=== PATIENT | female | born 1940 | race Hispanic/Latino ===

== ENCOUNTER → 2018-02-02 | Day surgery (SDC) | payer MEDICARE ==
[2018-02-01 16:29] LABS: BASOPHILS # (AUTO) 0.1 (0.0-0.1); BASOPHILS % 0.7 % (0.0-1.0); EOSINOPHILS # (AUTO) 0.2 (0.0-0.4); EOSINOPHILS % 2.1 % (0.0-6.0); HEMATOCRIT 37.9 % (34.2-44.1); HEMOGLOBIN 12.8 g/dL (12.0-16.0); LYMPHOCYTES # (AUTO) 2.4 (1.0-3.2); LYMPHOCYTES % 29.5 % (18.0-39.1); MEAN CORPUSCULAR HEMOGLOBIN 31.8 pg (28-32); MEAN CORPUSCULAR HGB CONC 33.8 g/dL (31-35); MEAN CORPUSCULAR VOLUME 94.3 fL (81-99); MONOCYTES # (AUTO) 0.7 (0.2-0.8); MONOCYTES % 8.4 % (4.4-11.3); NEUTROPHILS # (AUTO) 4.9 (2.1-6.9); NEUTROPHILS % 59.1 % (38.7-80.0); PLATELET COUNT 196 x10e3/uL (140-360); RED BLOOD COUNT 4.02 x10e6/uL (3.6-5.1); RED CELL DISTRIBUTION WIDTH 12.9 % (11.7-14.4)
[~2018-02-02] MED LIST: LEVOTHYROXINE PO; PROPOFOL IV EMULSION 10 MG/ML 50 ML VIAL ONE
--- OUTSIDE RECORDS SUMMARY | 2018-02-02 08:31 | XMS REPORT | Summary of Care ---
Author Author [facility] Organization [facility] Address Unknown Phone Unavailable Encounter HQ Lelar_hilary(FIN) [id number] Date(s): 09/26/17 - 09/26/[address] [facility] [address] [place] [address]- [phone] Discharge Disposition: Home or Self Care Attending Physician: Physician, Non Associated MD Vital Signs No data available for this section Problem List Condition Effective Dates Status Health Status Informant Headache(Confirmed) Active Simple Active obesity(Confirmed) Trigeminal Active neuralgia(Confirmed) Allergies, Adverse Reactions, Alerts Substance Reaction Severity Status NKDA Active Medications No data available for this section Results No data available for this section Immunizations No data available for this section Procedures Procedure Date Related Diagnosis Body Site Status Foot joint operations1 Completed Social History Social History Type Response Substance Abuse Use: None. Alcohol Never Smoking Status Former smoker; Exposure to Tobacco Smoke None; Cigarette Smoking Last 365 Days No; Reg Smoking Cessation Counseling No1 entered on: 07/19/17 1as a teenager Assessment and Plan No data available for this section
--- OUTSIDE RECORDS SUMMARY | 2018-02-02 08:31 | XMS REPORT | Summary of Care ---
Author Author [facility] Organization [facility] Address Unknown Phone Unavailable Encounter JULIAN Rodriguez(FIN) [id number] Date(s): 06/06/17 - 06/06/17 [facility] [address] [place] [address] [phone] Discharge Disposition: Home or Self Care Attending Physician: Juan Pacheco MD Vital Signs Most recent to 1 oldest [Reference Range]: Height 151.13 cm (06/03/17 12:03 PM) Blood Pressure 157/82 mmHg [90-140/60-90 mmHg] *HI* (06/03/17 12:03 PM) Peripheral Pulse 66 bpm Rate [60-100 bpm] (06/03/17 12:03 PM) Weight 71.023 kg (06/03/17 12:03 PM) Body Mass Index 31.1 m2 (06/03/17 12:03 PM) Problem List Condition Effective Dates Status Health Status Informant Headache(Confirmed) Active Simple Active obesity(Confirmed) Trigeminal Active neuralgia(Confirmed) Allergies, Adverse Reactions, Alerts Substance Reaction Severity Status NKDA Active Medications indomethacin 25 mg oral capsule 25 mg=1 cap, PO, Q8H, PRN Pain, # 30 cap, 0 Refill(s), Pharmacy: [facility] [id number] Start Date: 06/06/17 Stop Date: 06/16/17 Status: Ordered levothyroxine 88 mcg (0.088 mg) oral tablet 88 microgram=1 tab, PO, Daily, 0 Refill(s) Start Date: 06/03/17 Status: Ordered Results No data available for this section [...]
--- OUTSIDE RECORDS SUMMARY | 2018-02-02 08:31 | XMS REPORT | Summary of Care ---
Author Author [facility] Organization [facility] Address Unknown Phone Unavailable Encounter HQ Encntr_alias(FIN) [id number] Date(s): 07/06/16 - 07/06/16 [facility] [address] [place] [address]- [phone] Discharge Disposition: Home or Self Care Attending Physician: Lefty Hemphill MD Referring Physician: Physician, Non Associated MD Vital Signs No data available for this section Problem List No data available for this section Allergies, Adverse Reactions, Alerts Substance Reaction Severity Status NKDA Active Medications No data available for this section Results No data available for this section Immunizations No data available for this section Procedures No data available for this section Social History No data available for this section Assessment and Plan No data available for this section
--- OUTSIDE RECORDS SUMMARY | 2018-02-02 08:31 | XMS REPORT | Summary of Care ---
Author Author [facility] Neurology [facility] Organization [facility] Neurology [facility] Address Unknown Phone Unavailable Encounter HQ Lelar_hilary(FIN) [id number] Date(s): 07/19/17 - 07/19/17 [facility] [address] [place] [phone] Discharge Disposition: Home or Self Care Attending Physician: Shine Ruiz MD Vital Signs Most recent to 1 oldest [Reference Range]: Blood Pressure 138/75 mmHg [90-140/60-90 mmHg] (07/19/17 8:06 AM) Peripheral Pulse 62 bpm Rate [60-100 bpm] (07/19/17 8:06 AM) Weight 70.114 kg (07/19/17 8:06 AM) Problem List Condition Effective Dates Status Health Status Informant Headache(Confirmed) Active Simple Active obesity(Confirmed) Trigeminal Active neuralgia(Confirmed) Allergies, Adverse Reactions, Alerts Substance Reaction Severity Status NKDA Active Medications Tegretol XR 100 mg oral tablet, extended release 100 mg=1 tab, PO, BID, # 90 tab, 1 Refill(s), Pharmacy: [facility] [id number] Start Date: 07/19/17 Status: Ordered Results No data available for this section Immunizations No data available for this section Procedures Procedure Date Related Diagnosis Body Site Status Foot joint operations1 Completed Social History Social History Type Response Substance Abuse Use: None. Alcohol Never Smoking Status Former smoker; Exposure to Tobacco Smoke None; Cigarette Smoking Last 365 Days No; Reg Smoking Cessation Counseling No1 entered on: 10/05/17 1as a teenager Assessment and Plan No data available for this section
--- OUTSIDE RECORDS SUMMARY | 2018-02-02 08:31 | XMS REPORT | Summary of Care ---
Author Organization Unknown Address Unknown Phone Unavailable Encounter HQ Lelar_hilary(ODALYS) [id number] Date(s): 02/07/14 - 02/07/14 [facility] Outpatient Imaging [address] Discharge Disposition: Home Physician Attending: Lawrence Ortez MD Reason for Visit V76.12 - SCREEN MAMMOGRA Problem List No data available for this section Allergies, Adverse Reactions, Alerts Substance Reaction Severity Status NKDA Active Medications No data available for this section Medications Administered During Your Visit No data available for this section Immunizations No data available for this section
--- OUTSIDE RECORDS SUMMARY | 2018-02-02 08:31 | XMS REPORT | Summary of Care ---
Author Author [facility] Organization [facility] Address Unknown Phone Unavailable Encounter HQ Encntr_alitay(FIN) [id number] Date(s): 07/18/17 - 07/19/17 [facility] Neurology [facility] [address] [place] [phone] Vital Signs No data available for this [...]
--- OUTSIDE RECORDS SUMMARY | 2018-02-02 08:31 | XMS REPORT | Continuity of Care Document ---
Author Author [facility] Address Unknown Phone Unavailable Problems Problem Status Onset Date Classification Date Reported Comments Source N64.4 Active 09/20/2017 [facility] Headache 07/08/2017 10/06/2017 [facility] ROUTINE SCREENING LAST MMG W///DR Active 06/01/2016 [facility] Z12.31 - ENCNTR SCREEN MAMMOGRAM FOR MA Active 04/30/2016 [facility] [place] ROUTINE Active 05/20/2015 [facility] Headache Active Problem 10/25/[address] [facility] [place],[facility] Simple obesity Active Problem 10/25/[address] [facility] [place],[facility] Trigeminal neuralgia Active Problem 10/25/[address] [facility] [place],[facility] ENCNTR SCREEN MAMMOGRAM FOR MALIGNANT NE Active [facility] Medications Medication Details Route Status Patient Instructions Ordering Provider Order Date Source 12 HR Carbamazepine 100 MG Extended Release Tablet [Tegretol] 100 mg=1 tab, PO, BID, # 90 tab, 1 Refill(s), Pharmacy: [facility] [id number] Active 07/19/[address] [facility] indomethacin 25 mg oral capsule 25 mg=1 cap, PO, Q8H, PRN Pain, # 30 cap, 0 Refill(s), Pharmacy: [facility] [id number] Active 06/06/[address] [facility] levothyroxine 88 mcg (0.088 mg) oral tablet 88 microgram=1 tab, PO, Daily, 0 Refill(s) Active 06/03/[address] [facility] Allergies, Adverse Reactions, Alerts Substance Category Reaction Severity Reaction type Status Date Reported Comments Source Immunizations Immunization Date Given Site Status Last Updated Comments Source Results Order Name Results Value Reference Range Date Interpretation Comments Source Breast Mammo Diag NAZARIO incl CAD MA Breast Mammo Diag NAZARIO incl CAD MA BILATERAL DIGITAL DIAGNOSTIC MAMMOGRAM WITH CAD: 09/26/2017 CLINICAL: Left pain. Current study was evaluated with a Computer Aided Detection (CAD) system. COMPARISON:Comparison is made to exams dated: 07/06/2016 mammogram, 05/28/2015 mammogram - [facility], 02/07/2014 mammogram - [facility], 02/02/2013 mammogram, 12/17/2011 mammogram, and 11/25/2010 mammogram - [facility]. TECHNIQUE: Mammographic views were obtained using digital acquisition. BMEYEa Version 1.3 was utilized for computer aided detection. FINDINGS: There are scattered fibroglandular densities in both breasts. There is a benign nodule in the right breast. There also are benign vascular calcifications and calcifications in both breasts. No significant masses, calcifications, or other findings are seen in either breast. There has been no significant interval change. IMPRESSION: INCOMPLETE: NEEDS ADDITIONAL IMAGING EVALUATION RECOMMENDATION:There is no mammographic abnormality seen in the left breast to correspond with the pain in the lateral aspect, however, ultrasound is recommended. The results were reviewed with the patient. This exam was interpreted at [id number] for [facility]. SUMMARY: Ultrasound will be performed at this time; please see dedicated separate report. Varghese slaughter/penrad:09/26/2017 10:26:56 Catering Attendant(s): Daxa Burroughs [facility] Mammogram BI-RADS: 0 Indeterminate 09/26/2017 - - Read by: Varghese Garcia MD Dictated Date/time: 09/26/17 10:26 Electronically Signed by: Varghese Garcia MD 09/26/17 10:26 FINAL REPORT [facility] Breast [facility] Uni US Breast Complete Uni US COMPLETE ULTRASOUND OF LEFT BREAST AND AXILLA: 09/26/2017 CLINICAL: /Breast Pain. COMPARISON:Comparison is made to exams dated: 09/26/2017 mammogram, 07/06/2016 mammogram, 05/28/2015 mammogram - [facility], 02/07/2014 mammogram - [facility] Imaging [facility], 02/02/2013 mammogram, and 05/11/2012 ultrasound - [facility]. TECHNIQUE: Color flow and real-time ultrasound of the left breast four quadrants and axilla regions were performed. Blakely scale images of the real-time examination were reviewed. All 4 quadrants, the retroareolar region and axilla are evaluated in this exam. FINDINGS: No abnormalities were seen sonographically in the left breast or the left axilla. IMPRESSION: NEGATIVE There is no sonographic evidence of malignancy. There is no mammographic or sonographic abnormality seen in the left breast to correspond with the pain at 5 o'clock. A 1 year screening mammogram is recommended.(09/27/2018) The results were reviewed with the patient. This exam was interpreted at [id number] for [facility]. Varghese Garcia M.D. jt/:09/26/2017 10:43:36 Catering Attendant(s): Renetta Ward, [facility] letter sent: BI-RADS 1/2 Ultrasound BI-RADS: 1 Negative 09/26/2017 - - Read by: Varghese Garcia MD Dictated Date/time: 09/26/17 10:43 Electronically Signed by: Varghese Garcia MD 09/26/17 10:43 FINAL REPORT [facility] Brain wo contrast MRI Brain wo contrast MRI Exam: MRI of the brain without contrast Reason for Exam: R51 Headache - R51 Headache Comparison Exam: None Technique: Multiplanar and multisequence imaging was performed of the brain. The T1 and T2-weighted images were acquired without injection of intravenous contrast. Discussion: On diffusion weighted images, there is no evidence seen for diffusion restriction. There are no abnormal fluid collections, space-occupying lesions, midline shift, or hydrocephalus noted. No cortical-based abnormalities identified. The posterior fossa and orbits are unremarkable. The paranasal sinuses are unremarkable. The skull is unremarkable in appearance. Impression: 1. Unremarkable MRI of the brain. 06/30/2017 - - Read by: Kendrick Rossi MD Dictated Date/time: 07/01/17 11:22 Electronically Signed by: Kendrick Rossi MD 07/01/17 11:26 FINAL REPORT [facility] Brain wo contrast MRA Brain wo contrast MRA Exam: MRA brain without contrast Reason for Exam: R51 Headache - R51 Headache Comparison exam: MRI brain 06/30/2017 Technique: Multiplanar Magnetic resonance angiography of the [place] of [place] was performed without administration of IV gadolinium. Discussion: The petrous, cavernous, ophthalmic and supraclinoid portions of the bilateral internal carotid arteries are patent. The A1 and A2 segments of the bilateral anterior cerebral arteries are patent. The M1 and M2 segments of the bilateral middle cerebral arteries and branches are patent. No evidence seen for aneurysmal dilation, AV malformations, or significant atherosclerotic related stenoses within the anterior circulation. Bilateral vertebral arteries, basilar artery, superior cerebellar arteries, and posterior cerebral arteries are patent. No evidence seen for aneurysmal dilation, AV malformations, or significant atherosclerotic related stenoses within the posterior circulation. IMPRESSION: 1. Unremarkable MRA of the brain without contrast 06/30/2017 - - Read by: Kendrick Rossi MD Dictated Date/time: 07/01/17 11:17 Electronically Signed by: Kendrick Rossi MD 07/01/17 11:22 FINAL REPORT [facility] Breast Mammo Scrn NAZARIO w tripp incl CAD MA Breast Mammo Scrn NAZARIO w tripp incl CAD MA - BREAST MAMMO SCRN NAZARIO W TRIPP INCL CAD MA BILATERAL DIGITAL SCREENING MAMMOGRAM 3D/2D WITH CAD: 07/06/2016 CLINICAL: Routine. 2D digital mammographic images and 3D digital tomosynthesis images were obtained in the CC and MLO projections. Current study was evaluated with a Computer Aided Detection (CAD) system. Comparison is made to exams dated: 05/28/2015 mammogram - [facility], 02/07/2014 mammogram - [facility], 02/02/2013 mammogram, 12/17/2011 mammogram and 11/25/2010 mammogram - [facility]. There are scattered fibroglandular densities in both breasts. There are benign vascular calcifications and calcifications in both breasts. There also is a benign nodule in the right breast. No significant masses, calcifications, or other findings are seen in either breast. There has been no significant interval change. IMPRESSION: BENIGN There is no mammographic evidence of malignancy. A 1 year screening mammogram is recommended. Varghese slaughter/penrad:07/06/2016 11:10:32 Catering Attendant: Saundra Ortez, [facility] This exam was dictated and interpreted by [id number] for [facility]. letter sent: Normal exam Mammogram BI-RADS: 2 Benign 07/06/2016 - - Read by: Varghese Garcia MD Dictated Date/time: 07/06/16 11:10 Electronically Signed by: Varghese Garcia MD 07/06/16 11:10 FINAL REPORT [facility] Digital Mammo Screening Nazario MA Digital Mammo Screening Nazario MA - DIGITAL MAMMO SCREENING NAZARIO MA BILATERAL DIGITAL SCREENING MAMMOGRAM WITH CAD: 05/28/2015 CLINICAL: Routine. Current study was evaluated with a Computer Aided Detection (CAD) system. Comparison is made to exams dated: 02/07/2014 mammogram - [facility], 02/02/2013 mammogram, 12/17/2011 mammogram, 11/25/2010 mammogram, 10/01/2010 mammogram and 09/22/2010 mammogram - [facility]. There are scattered fibroglandular densities in both breasts. There are benign vascular calcifications and calcifications in both breasts. No significant masses, calcifications, or other findings are seen in either breast. There has been no significant interval change. IMPRESSION: BENIGN There is no mammographic evidence of malignancy. A 1 year screening mammogram is recommended. Varghese fullert/penrad:05/28/2015 14:30:41 Catering Attendant: Dania Nogueira [facility] This exam was dictated and interpreted by [id number] for [facility]. letter sent: Normal exam Mammogram BI-RADS: 2 Benign 05/28/2015 - - Read by: Varghese Garcia MD Dictated Date/time: 05/28/15 14:30 Electronically Signed by: Varghese Garcia MD 05/28/15 14:30 FINAL REPORT [facility] Vital Signs Vital Sign Value Date Comments Source Weight 70.114 07/19/2017 [facility] Heart Rate 62 07/19/2017 [facility] Systolic (mm Hg) 138 07/19/2017 [facility] Diastolic (mm Hg) 75 07/19/2017 [facility] Weight 71.023 06/03/2017 [facility] BMI Calculated 31.1 06/03/2017 [facility] Height 151.13 cm 06/03/2017 [facility] Systolic (mm Hg) 157 06/03/2017 [facility] Diastolic (mm Hg) 82 06/03/2017 [facility] Heart Rate 66 06/03/2017 [facility] Encounters Location Location Details Encounter Type Encounter Number Reason For Visit Attending Provider ADM Date DC Date Status Source [facility] [place] [facility] [id number] Lawrence Ortez 02/07/2014 02/08/2014 [facility] Outpatient [id number] Non Physician 05/28/2015 05/29/2015 [facility] Outpatient [id number] Non Physician 07/06/2016 07/07/2016 [facility] Neurology [facility] Phone Message [id number] 05/31/2017 06/02/2017 [facility] Outpatient [id number] JUAN KIM JR 06/06/2017 Active [facility] Neurology [facility] Outpatient [id number] Juan Kim Jr 06/06/2017 06/07/2017 [facility] Phone Message [id number] 06/07/2017 06/09/2017 [facility] Phone Message [id number] 06/21/2017 06/23/2017 [facility] [place] [facility] [id number] Juan Kim Jr 06/30/2017 [facility] [place] [facility] Phone Message [id number] 07/18/2017 07/20/2017 [facility] Outpatient [id number] JUAN KIM JR 07/19/2017 [facility] Neurology [facility] Outpatient [id number] Shine Araizaum 07/19/2017 07/20/2017 [facility] Outpatient [id number] JUAN KIM JR 09/06/2017 [facility] Outpatient [id number] Non Physician 09/26/2017 09/27/2017 [facility] Outpatient [id number] JUAN KIM JR 10/06/2017 [facility] Procedures Procedure Code Date Perfomer Comments Source Foot joint operations<sup>1</sup> [id number] 01/2017 [facility] Foot joint operations<sup>1</sup> [id number] 01/2017 [facility] Aguillona Foot joint operations<sup>1</sup> [id number] 01/2017 [facility]
--- OUTSIDE RECORDS SUMMARY | 2018-02-02 08:31 | XMS REPORT | Summary of Care ---
Author Author [facility] Organization [facility] Address Unknown Phone Unavailable Encounter HQ Encntr_alitay(FIN) [id number] Date(s): 05/31/17 - 06/01/17 [facility] [address] [place] [phone] Vital Signs No data available for this [...]
--- OUTSIDE RECORDS SUMMARY | 2018-02-02 08:31 | XMS REPORT | Summary of Care ---
Author Author [facility] Organization [facility] Address Unknown Phone Unavailable Encounter HQ Encntr_alias(FIN) [id number] Date(s): 05/28/15 - 05/28/15 [facility] [address] [place] [address]- Discharge Disposition: Home Attending Physician: Lawrence Ortez MD Referring Physician: Physician, Non Associated MD [...]
--- OUTSIDE RECORDS SUMMARY | 2018-02-02 08:31 | XMS REPORT | Summary of Care ---
Author Author [facility] [place] Organization [facility] [place] Address Unknown Phone Unavailable Encounter HQ Encntr_hilary(FIN) [id number] Date(s): 06/30/17 - 06/30/17 [facility] Outpatient [facility] [place] [address] [place], [place] [address] [phone] Encounter Diagnosis Headache (Final) - 07/07/17 Discharge Disposition: Home or Self Care Attending Physician: Juan Pacheco MD Vital Signs No data available for [...]
--- OUTSIDE RECORDS SUMMARY | 2018-02-02 08:31 | XMS REPORT | Summary of Care ---
Author Author [facility] Organization [facility] Address Unknown Phone Unavailable Encounter HQ Encntr_alitay(FIN) [id number] Date(s): 06/07/17 - 06/08/17 [facility] [address] [place] [address] [phone] Vital Signs No data available for this [...]
--- OUTSIDE RECORDS SUMMARY | 2018-02-02 08:31 | XMS REPORT | Summary of Care ---
Author Author [facility] Organization [facility] Address Unknown Phone Unavailable Encounter HQ Edgarntr_hilary(FIN) [id number] Date(s): 06/21/17 - 06/22/17 [facility] [address] [place] [address] [phone] Vital Signs No data available for this [...]
--- OUTSIDE RECORDS SUMMARY | 2018-02-02 08:32 | XMS REPORT ---
Author Organization Unknown Address [address] [place] [address] Phone [phone] Care Team Providers Care [employer] Name Role Phone JIN "CECI" REENA QUAN 3 [phone] Allergies Code Code System Name Reaction Severity Status Onset NKDA Medications Name Status Start Date Stop Date alendronate 35 mg tablet Take 1 tablet every week by oral route for 90 days. take w/ water, 30min before first food/drink/med, avoid lying down x30min Completed 05/11/2017 Boostrix Tdap 2.5 Lf unit-8 mcg-5 Lf/0.5 mL intramuscular syringe Active Not available cephalexin 500 mg capsule Completed 03/25/2016 ciclopirox 8 % topical solution Completed 11/02/2016 hydrocodone 5 mg-acetaminophen 325 mg tablet Completed 05/11/2017 levothyroxine 88 mcg tablet Active Not available losartan 50 mg tablet Completed 11/02/2016 meclizine 25 mg tablet Completed 11/02/2016 naproxen 500 mg tablet Completed 03/25/2016 prednisone 20 mg tablet Completed 05/19/2017 tretinoin 0.05 % topical cream APPLY TO THE AFFECTED AREA(S) BY TOPICAL ROUTE ONCE DAILY AT BEDTIME Unknown Not available Zostavax (PF) 19,400 unit/0.65 mL subcutaneous suspension Completed 05/11/2017 Problems Name Status Onset Date Source Hypothyroidism Active 06/11/2015 History Mixed Hyperlipidemia Active 06/11/2015 History Pure Hypercholesterolemia Unknown 09/23/2015 History Prediabetes Active 03/25/2016 Acquired Hallux Rigidus Active 11/02/2016 Osteopenia Active 01/05/2017 Procedures Date Name Performed by 11/24/2015 Bone Mineral Dual Photon Notes: showed osteopenia, rpt 2 yrs Information not available 04/18/2015 Colonoscopy Notes: GI - Dr. Reinaldo Florian [phone] Information not available 03/25/2016 MAMMO, Screening, Bilateral [facility] [address] [place] [address] (Work Place) 12/09/2016 Electrocardiogram [facility] [address] [place] [address] (Work Place) 12/09/2016 XR, Chest, 2 View [facility] [address] [place] [address] (Work Place) 05/19/2017 CT, Head, W/o Contrast [facility] [address] [place] [address] (Work Place) Notes: 09/30/2015: Hysterectomy Lab Results Date Name Specimen Result Interpretation Description Value Range Status Address 06/29/2017 HbA1C (Hemoglobin a1C), Blood High A1C W/eag 6.1 % 1.0-5.7 % Final [facility] Laboratory: [facility] Me[address] robina [address] Average Blood Glucose 128 mg/dL Final [facility] Laboratory: [facility] Me[address] Root [address] 06/29/2017 Vitamin B12 + Folate, Serum or Blood Folate 16.0 NG/mL Final [facility] Laboratory: [facility] Me[address]han robina [address] Vitamin B12 351 pg/mL 213-816 pg/mL Final [facility] Laboratory: [facility] Meaghan robina [address] 05/11/2017 Erythrocyte Sedimentation Rate by Westergren Method Normal Sed Rate by Modified Westergren 15 mm/h < or=30 mm/h Final [facility] Laboratory: [facility] Meaghan Root [address] 05/11/2017 CBC W/ Auto Diff Normal White Blood Cell Count 6.8 thousand/uL 3.8-10.8 thousand/uL Final [facility] Laboratory: [facility] Meaghan robina [address] Normal Red Blood Cell Count 4.05 million/uL 3.80-5.10 million/uL Final [facility] Laboratory: [facility] Meaghan robina [address] Normal Hemoglobin 13.0 g/dL 11.7-15.5 g/dL Final [facility] Laboratory: [facility] Meaghan robina [address] Normal Hematocrit 37.1 % 35.0-45.0 % Final [facility] Laboratory: [address] Normal Mcv 91.6 fL 80.0-100.0 fL Final [facility] Laboratory: [address] Normal Mch 32.1 pg 27.0-33.0 pg Final [facility] Laboratory: [address] Normal Mchc 35.0 g/dL 32.0-36.0 g/dL Final [facility] Laboratory: [address] Normal Rdw 12.4 % 11.0-15.0 % Final [facility] Laboratory: [address], Alex Normal Platelet Count 253 thousand/uL 140-400 thousand/uL Final [facility] Laboratory: [address] Normal Mpv 10.5 fL 7.5-12.5 fL Final [facility] Laboratory: [address] Normal Absolute Neutrophils 4257 cells/uL 9489-9510 cells/uL Final [facility] Laboratory: [address] Normal Absolute Lymphocytes 1931 cells/uL 850-3900 cells/uL Final [facility] Laboratory: [address] Normal Absolute Monocytes 435 cells/uL 200-950 cells/uL Final [facility] Laboratory: [address] Normal Absolute Eosinophils 136 cells/uL 15-500 cells/uL Final [facility] Laboratory: [address] Normal Absolute Basophils 41 cells/uL 0-200 cells/uL Final [facility] Laboratory: [address] Normal Neutrophils 62.6 % Final [facility] Laboratory: [address] Normal Lymphocytes 28.4 % Final [facility] Laboratory: [address] Normal Monocytes 6.4 % Final [facility] Laboratory: [address] Normal Eosinophils 2.0 % Final [facility] Laboratory: [address] Normal Basophils 0.6 % Final [facility] Laboratory: [address] 05/11/2017 C-reactive Protein, Quantitative Normal C-reactive Protein 1.4 mg/L <8.0 mg/L Final [facility] Laboratory: [address] [place] 01/05/2017 CMP, Serum or Plasma Alt 15 U/L 0-55 U/L Final [facility] Laboratory: [address] [place] [address] [place] Ast 24 U/L 5-34 U/L Final [facility] Laboratory: [address] [place] High Bun 21.1 mg/dL 9.8-20.1 mg/dL Final [facility] Laboratory: [address] [place], [place] Alk Phos 75 unit/L 40-150 unit/L Final [facility] Laboratory: [address], [place] High Glucose 114 mg/dL 70-99 mg/dL Final [facility] Laboratory: [address] [place] [address], [place] Albumin 3.6 g/dL 3.5-5.0 g/dL Final [facility]: [address] [facility] Creatinine 0.93 mg/dL 0.57-1.11 mg/dL Final [facility] Laboratory: [address] [place] [address] Low eGFR Non- 59 mL/min/1.73m2 >60 mL/min/1.73m2 Final [facility] Laboratory: [address] [place] [address] Total Bilirubin 0.3 mg/dL 0.2-1.2 mg/dL Final [facility] Laboratory: [address] eGFR - >60 mL/min/1.73m2 >60 mL/min/1.73m2 Final [facility] Laboratory: [address] [place] [address] Sodium 145 mEq/L 136-145 mEq/L Final [facility] Laboratory: [address] Potassium 3.6 mEq/L 3.5-5.1 mEq/L Final [facility]: [address] [facility] [facility] High Chloride 108 mmol/L 98-107 mmol/L Final [facility]: [address] [facility] Total Protein 6.8 g/dL 6.4-8.3 g/dL Final [facility]: [address] [facility] Calcium 9.0 mg/dL 8.4-10.2 mg/dL Final [facility] Laboratory: [address] [facility], [place] Co2 26.3 mmol/L 23.0-31.0 mmol/L Final [facility] Laboratory: [address] Anion Gap 11 calc Final [facility] Laboratory: [address] [place] [address], [place] 01/05/2017 Lipid Panel, Serum High Hdl 66 mg/dL 40-60 mg/dL Final [facility] Laboratory: [address] High Triglyceride 211 mg/dL 0-149 mg/dL Final [facility] Laboratory: [address] VLDL Calc. 42 mg/dL Final [facility] Laboratory: [address] cholesterol/HDL Ratio 3.5 mg/dL Final [facility] Laboratory: [address] High non-HDL Cholesterol Calc. 164 mg/dL 0-160 mg/dL Final [facility] Laboratory: [address] High Cholesterol 230 mg/dL 0-199 mg/dL Final [facility] Laboratory: [address] LDL Calc. 122 mg/dL 0-130 mg/dL Final [facility] Laboratory: [address] 01/05/2017 T4, Free, Serum T4 Free 1.16 NG/dL 0.70-1.48 NG/dL Final [facility] Laboratory: [address] 01/05/2017 TSH, Serum or Plasma Tsh 0.904 uIU/mL 0.350-4.940 uIU/mL Final [facility] Laboratory: [address] 01/05/2017 HbA1C (Hemoglobin a1C), Blood High A1C W/eag 6.2 % 1.0-5.7 % Final [facility] Laboratory: [address] [place] [address] Average Blood Glucose 131 mg/dL Final [facility] Laboratory: [address] 08/17/2016 TSH, Serum or Plasma Normal Tsh 2.31 mIU/L 0.40-4.50 mIU/L Final [facility] Laboratory: [address] 08/17/2016 T4, Total, Serum Normal T4 (Thyroxine), Total 9.4 mcg/dL 4.5-12.0 mcg/dL Final [facility] Laboratory: [address] [place] [address] Lipid Panel, Serum High Cholesterol, Total 240 mg/dL 125-200 mg/dL Final [facility] Lab: [address], [place] Normal HDL Cholesterol 77 mg/dL > or=46 mg/dL Final [facility] Lab: [address] [facility], [place] Normal Triglycerides 115 mg/dL <150 mg/dL Final [facility] Lab: [address] [facility], [place] High LDL-cholesterol 140 mg/dL (calc) <130 mg/dL (calc) Final [facility] Lab: [address], [place] Normal Chol/hdlc Ratio 3.1 (calc) < or=5.0 (calc) Final [facility] Lab: [address] [facility], [place] High Non HDL Cholesterol 163 mg/dL (calc) Final [facility] Lab: [address] [facility], [place] CMP, Serum or Plasma High Glucose 100 mg/dL 65-99 mg/dL Final [facility] Lab: [address] [facility], [place] Normal Urea Nitrogen (BUN) 13 mg/dL 7-25 mg/dL Final [facility] Lab: [address] [facility], [place] Normal Creatinine 0.62 mg/dL 0.60-0.93 mg/dL Final [facility] Lab: [address] [facility], [place] Normal eGFR Non-afr. [place] 89 mL/min/1.73m2 > or=60 mL/min/1.73m2 Final [facility] Lab: [address] [facility], [place] Normal eGFR 104 mL/min/1.73m2 > or=60 mL/min/1.73m2 Final [facility] Lab: [address], [place] BUN/creatinine Ratio not applicable (calc) 6-22 (calc) Final [facility] Lab: [address], [place] Normal Sodium 139 mmol/L 135-146 mmol/L Final [facility] Lab: [address] [facility], [place] Normal Potassium 3.8 mmol/L 3.5-5.3 mmol/L Final [facility] Lab: [address] [facility], [place] Normal Chloride 104 mmol/L 98-110 mmol/L Final [facility] Lab: [address], [place] Normal Carbon Dioxide 26 mmol/L 20-31 mmol/L Final [facility] Lab: [address] [facility], [place] Normal Calcium 9.2 mg/dL 8.6-10.4 mg/dL Final [facility] Lab: [address] [facility], [place] Normal Protein, Total 7.1 g/dL 6.1-8.1 g/dL Final [facility] Lab: [address] [facility], [place] Normal Albumin 4.4 g/dL 3.6-5.1 g/dL Final [facility] Lab: [address] [facility], [place] Normal Globulin 2.7 g/dL (calc) 1.9-3.7 g/dL (calc) Final [facility] Lab: [address] [facility], [place] Normal Albumin/globulin Ratio 1.6 (calc) 1.0-2.5 (calc) Final [facility] Lab: [address] [facility], [place] Normal Bilirubin, Total 0.4 mg/dL 0.2-1.2 mg/dL Final [facility] Lab: [address] [facility], [place] Normal Alkaline Phosphatase 73 U/L 33-130 U/L Final [facility] Lab: 70 [facility], [place] Normal Ast 22 U/L 10-35 U/L Final [facility] Lab: [address] [facility], [place] Normal Alt 17 U/L 6-29 U/L Final [facility] Lab: 70 [facility], [place] T4, Total, Serum Normal T4 (Thyroxine), Total 9.3 mcg/dL 4.5-12.0 mcg/dL Final [facility] Lab: [address] [facility], [place] TSH, Serum or Plasma Normal Tsh 3.41 mIU/L 0.40-4.50 mIU/L Final [facility] Lab: [address] [facility], [place] HbA1C (Hemoglobin a1C), Blood High Hemoglobin a1C 6.1 % of total HGB <5.7 % of total HGB Final [facility] Lab: [address] [facility], [place] Albumin:creatinine Ratio, Urine Type Urine Microlalbumin 30 mg/L [facility]: [phone] [facility] [address], [place] Type Urine Creatinine 200 mg/dL [facility]: [address] [address], [place] Type A:C Ratio <30 mg/g (Normal) [facility]: [address] [facility] [address], [place] Electrocardiogram Rate & Rhythm [facility]: [address], [place] Qrs [facility]: [address], [place] Interval [facility]: [address] [facility] [address], [place] QRS Duration [facility]: [address], [place] QT Interval [facility]: [address] [address] [facility] [address], [place] Past Encounters 07/15/2017 Excess Skin of Eyelid; Body Mass Index 25-29 - Overweight; Hypothyroidism SHAILA Lee: [address] [address], Ph. 06/29/2017 Paresthesia of Lower Extremity SHAILA Lee: [address] [address], Ph. 05/19/2017 Headache; Hypothyroidism; Body Mass Index 30+ - Obesity SHAILA Lee: [address] [address], Ph. 05/11/2017 Temporal Arteritis; Body Mass Index 30+ - Obesity; History of Fall; Depression Screening SHAILA Lee: [address] [address], Ph. 01/05/2017 Adult Health Examination; Body Mass Index 30+ - Obesity; Hypothyroidism; Mixed Hyperlipidemia; Prediabetes; Advance Directive Discussed with Patient; Depression Screening; Immunization; Screening for Malignant Neoplasm of Colon; Osteopenia SHAILA Lee: [address] [address], Ph. 12/09/2016 Pre-surgery Evaluation; Tailor's Bunion; Hammer Toe; Body Mass Index 30+ - Obesity; At Risk for Falls; Depression Screening; Electrocardiogram Abnormal SHAILA Lee: [id number], [place] [address], Ph. 11/02/2016 Hypothyroidism; Tailor's Bunion Angelica Roe PA: [address]26 [facility], [facility] [address], [place] [address], Ph. 09/23/2016 Dizziness; Onychomycosis GRIS PrinceP: [address]12 [facility], [facility] [address], [place] [address], Ph. 08/24/2016 Lightheadedness; Benign Essential Hypertension SHAILA Lee: [address]24 [facility], [facility] [address], [place] [address], Ph. 08/17/2016 Hypothyroidism; Felibertoion SHAILA Lee: [address] [facility], [facility] [address], [place] [address], Ph. 06/15/2016 Bladder Muscle Dysfunction - Overactive SHAILA Lee: [address]92 [facility], [facility] [address], [place] [address], Ph. 05/21/2016 Hypothyroidism; Cystic Acne SHAILA Lee: [address] [facility], [place] [address], [place] [address], Ph. 05/18/2016 Pain in Right Foot CLARITA Prince: [address] [facility], [address] [address], Ph. 03/25/2016 Hypothyroidism; Prolapse of Vaginal Vault after Hysterectomy; Screening Mammography; Mixed Hyperlipidemia; Prediabetes; Body Mass Index 30+ - Obesity CLARITA Prince: [address] [facility], [place] [address], [place] [address], Ph. Social History Smoking Status Never Smoker Vaccine List Vaccine Type pneumococcal conjugate PCV 13 10/16/2016 Tdap 08/20/2016 zoster 01/10/20170.65 mL Plan of Care Patient Instructions It was good to see you in the office today for your Medicare Annual Wellness Visit. You have been provided some information on healthy nutrition, including a diet rich in fruits and vegetables, minimizing simple carbohydrates, salt, and saturated fats. I want to encourage regular cardiovascular exercise such as walking at least 30 minutes daily, 5 times per week. Please remember to schedule any preventive health measures that we talked about today. You have also been provided education on fall prevention and community- based lifestyle interventions to help reduce health risks and promote healthy living in your [place] folder. Screening Recommendations 1. Vaccines Pneumococcal: discussed today and information sent with patient in their [place] health folder Influenza: discussed today and information sent with patient in their [place] health folder Shingles: discussed today and information sent with patient in their [place] health folder Tetanus: discussed today and information sent with patient in their [place] health folder 2. Mammography Screening: discussed today and information sent with patient in their [place] health folder 3. Colorectal cancer Screening Colonoscopy: discussed today and information sent with patient in their [place] health folder Fecal Occult Blood: discussed today and information sent with patient in their [place] health folder 4. Bone Mass Measurement: discussed today 5. Pap test / Pelvic Exam Screening: discussed today 6. Eye Exam Screening: discussed today 7. Cholesterol Screening: discussed today 8. Diabetes Screening: discussed today Reminders Provider Appointments None recorded. Lab None recorded. Referral None recorded. Procedures None recorded. Surgeries None recorded. Imaging None recorded. Vitals 07/15/2017 09:15AM Est Patient Height Weight BMI Blood Pressure 4 ft 11 in 148 lbs 29.9 kg/m2 130/80 mm[Hg] 06/29/2017 02:30PM Est Patient Height Weight BMI Blood Pressure 4 ft 11 in 155 lbs 31.3 kg/m2 132/78 mm[Hg] 05/19/2017 10:00AM Est Patient Height Weight BMI Blood Pressure 4 ft 11 in 152 lbs 30.7 kg/m2 136/84 mm[Hg] 05/11/2017 02:30PM Est Patient Height Weight BMI Blood Pressure 4 ft 11 in 153 lbs 30.9 kg/m2 132/84 mm[Hg] 01/05/2017 03:00PM AWV Height Weight BMI Blood Pressure 4 ft 11 in 157 lbs 31.7 kg/m2 138/80 mm[Hg] 12/09/2016 02:30PM Est Patient Height Weight BMI Blood Pressure 4 ft 11 in 150.6 lbs 30.4 kg/m2 142/74 mm[Hg] 11/02/2016 09:15AM Est Patient Height Weight BMI Blood Pressure 4 ft 11 in 156 lbs 31.5 kg/m2 137/79 mm[Hg] 09/23/2016 10:30AM Work In Same Day Height Weight BMI Blood Pressure 4 ft 11 in 154.6 lbs 31.2 kg/m2 (1) 179/92 mm[Hg] (2) 152/78 mm[Hg] 08/24/2016 10:00AM Est Patient Height Weight BMI Blood Pressure 4 ft 11 in 153 lbs 30.9 kg/m2 161/82 mm[Hg] 08/17/2016 11:15AM Est Patient Height Weight BMI Blood Pressure 4 ft 11 in 155 lbs 31.3 kg/m2 165/88 mm[Hg] 06/15/2016 01:30PM Est Patient Height Weight BMI Blood Pressure 4 ft 11 in 157.6 lbs 31.8 kg/m2 133/69 mm[Hg] 05/21/2016 01:45PM Work In Same Day Height Weight BMI Blood Pressure 4 ft 11 in 156.6 lbs 31.6 kg/m2 145/78 mm[Hg] 05/18/2016 01:45PM Est Patient Height Weight BMI Blood Pressure 4 ft 11 in 157 lbs 31.7 kg/m2 133/75 mm[Hg] 03/25/2016 03:45PM Est Patient Height Weight BMI Blood Pressure 4 ft 11 in 157 lbs 31.7 kg/m2 124/80 mm[Hg] 09/30/2015 Height Weight BMI Blood Pressure 4 ft 11 in 157.4 lbs 31.79 kg/m2 128/78 mm[Hg] 09/23/2015 Height Weight BMI Blood Pressure 4 ft 11 in 156.6 lbs 31.63 kg/m2 140/74 mm[Hg] 09/19/2015 Height Weight BMI Blood Pressure 4 ft 11 in 158.2 lbs 31.95 kg/m2 149/68 mm[Hg] 09/08/2015 Height Weight BMI Blood Pressure 4 ft 11 in 158 lbs 31.91 kg/m2 122/68 mm[Hg] 06/11/2015 Height Weight BMI Blood Pressure 4 ft 11 in 156.4 lbs 31.59 kg/m2 132/78 mm[Hg] 01/06/2015 Height Weight BMI Blood Pressure 4 ft 11 in 152.2 lbs 30.74 kg/m2 124/76 mm[Hg] 12/11/2014 Height Weight BMI Blood Pressure 4 ft 11 in 152 lbs 30.70 kg/m2 135/80 mm[Hg] 12/04/2014 Height Weight BMI Blood Pressure 4 ft 11 in 150 lbs 30.29 kg/m2 130/78 mm[Hg]
[2018-02-02 11:40] VITALS: BP 145/75
== END | disposition home or self-care (01) ==
LOC: OR 08:25
PROVIDERS: ATTEND Internal Medicine
DX: K21.0 Gastro-esophageal reflux disease with esophagitis (principal); K29.50 Unspecified chronic gastritis without bleeding; K44.9 Diaphragmatic hernia without obstruction or gangrene; B96.81 Helicobacter pylori [H. pylori] as the cause of diseases classified elsewhere; E03.9 Hypothyroidism, unspecified; I45.10 Unspecified right bundle-branch block; Z01.810 Encounter for preprocedural cardiovascular examination; Z01.812 Encounter for preprocedural laboratory examination; Z68.30 Body mass index [BMI] 30.0-30.9, adult
CPT/HCPCS: 36415; 43239; 85025; 88305; 88312; 93005